=== PATIENT | female | born 1980 | race Caucasian/White ===

== ENCOUNTER 2020-04-27 15:18 | Emergency (ER) | payer OTHER ==
[2020-04-27] MEDS ORDERED: BACTRIM DS TAB1 EACH PO (17:15)
[2020-04-27] MEDS ORDERED: CEPHALEXIN500 MG PO (17:15)
== END 2020-04-27 18:06 | disposition home or self-care (01) ==
LOC: ER1 15:18
DX: L03.116 Cellulitis of left lower limb (principal); E11.9 Type 2 diabetes mellitus without complications; I10 Essential (primary) hypertension; F17.210 Nicotine dependence, cigarettes, uncomplicated; Z88.5 Allergy status to narcotic agent; Z90.49 Acquired absence of other specified parts of digestive tract
CPT/HCPCS: 93971; 99283